=== PATIENT | female | born 1960 | race Caucasian/White ===

== ENCOUNTER 2019-11-23 19:09 | Emergency (ER) | payer MEDICAID, SELFPAY ==
[2019-11-23 19:19] VITALS: BP 150/78; PULSE 66; RESP 18; TEMP 36.8; O2SAT 96; BMI 32.3
--- NOTE | 2019-11-23 19:29 | XR_ITS ---
WS: [id number] TIBIA-FIBULA LEFT TECHNIQUE: 2 views of the left tibia-fibula CLINICAL INFORMATION: fall with injury to left lower ext COMPARISON: None. FINDINGS: No evidence of acute fracture dislocation. Normal tibiotalar joint. Normal visualized tibia and fibul a. Normal soft tissues. XR/XR tibia fibula LT 2V [id number] IMPRESSION: Normal tibia and fibula
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
[2019-11-23 21:32] VITALS: BP 134/71; PULSE 88; RESP 16; TEMP 36.8; O2SAT 99
== END 2019-11-23 21:34 | disposition home or self-care (01) ==
PROVIDERS: Emergency Provider Emergency Medicine; Family Provider Family Medicine; PCP Family Medicine
DX: S80.12XA Contusion of left lower leg, initial encounter (principal); W01.0XXA Fall on same level from slipping, tripping and stumbling without subsequent striking against object, initial encounter; Z87.891 Personal history of nicotine dependence
CPT/HCPCS: 73590; 99281; 99282

== ENCOUNTER → 2020-03-22 09:31 | Outpatient (BNVA) | payer MEDICAID, SELFPAY | PROVIDERS: Family Provider Family Medicine; PCP Family Medicine; Referring Provider Family Medicine; Visit Provider Anesthesiology Pain Medicine | DX: M54.16 Radiculopathy, lumbar region (principal); M54.9 Dorsalgia, unspecified; M62.830 Muscle spasm of back; Z79.891 Long term (current) use of opiate analgesic | CPT/HCPCS: 99204; 99205 ==

== ENCOUNTER → 2020-04-05 13:01 | Outpatient (BNVA) | payer MEDICAID, SELFPAY | PROVIDERS: Family Provider Family Medicine; PCP Family Medicine; Visit Provider Anesthesiology Pain Medicine | DX: M47.816 Spondylosis without myelopathy or radiculopathy, lumbar region (principal); M54.9 Dorsalgia, unspecified; Z79.891 Long term (current) use of opiate analgesic | CPT/HCPCS: 64493; 64494; 64495; J2001; J3490 ==

== ENCOUNTER → 2020-04-19 10:04 | Outpatient (BNVA) | payer MEDICAID, SELFPAY | PROVIDERS: Family Provider Family Medicine; PCP Family Medicine; Visit Provider Anesthesiology Pain Medicine | DX: M47.816 Spondylosis without myelopathy or radiculopathy, lumbar region (principal); M54.16 Radiculopathy, lumbar region; M54.9 Dorsalgia, unspecified; M25.559 Pain in unspecified hip; M62.830 Muscle spasm of back; M54.2 Cervicalgia | CPT/HCPCS: 99214 ==

== ENCOUNTER 2020-05-09 16:03 | Outpatient (CLI) | payer MEDICAID, SELFPAY ==
--- NOTE | 2020-05-09 16:11 | MR_ITS ---
WS: [id number] MRI LUMBAR SPINE NONCONTRAST TECHNIQUE: Sagittal T1, T2 and STIR imaging. Axial T1 and T2 imaging. CLINICAL INFORMATION: RADICULOPATHY LUMBAR REGION COMPARISON: MRI FINDINGS: Mild lumbar curve. No acute compression. Schmorl's nodes in the lower thoracic spine. L1-L2: Mild disc bulging with slight effacement of ventral thecal sac. Slight narrowing of the subart icular recess bilaterally. Mild facet arthropathy. Mild right and no significant left foraminal narro wing. L2-L3: Tiny left foraminal protrusion L2-3 with encroachment on the traversing left L3 nerve root. Na rrowing of the left subarticular recess. Right foramen is patent. Mild facet arthropathy. L3-L4: Central disc protrusion with moderate central canal stenosis. Impingement subarticular recess bilaterally. Mild facet arthropathy. Foramen are patent. L4-L5: Annular bulging with impingement on the traversing right L5 nerve root. Mild central canal willwo nosis. Mild right and no significant left foraminal narrowing. Mild facet arthropathy. L5-S1: Mild disc bulging with osteophytic ridging. Mild right greater than left bony foraminal narrow ing. Mild facet arthropathy. Visualized pelvic bony structures: Normal. Paravertebral soft tissues: Normal. Left renal cyst 7.6 cm Small central protrusions in the mid thoracic spine seen on the electric power superintendent imaging at T6-T7 and T7-T8 and T8-9. MR/MR lumbar spine wo con* [id number] IMPRESSION: 1. Mild lumbar curve. No acute compression. 2. Shallow central protrusions L3-4 with moderate to severe central canal sten osis and impingement on the subarticular recess bilaterally. This is unchanged since 2019. 3. Disc bulging L4-5 with impingement right subarticular recess and traversing right L5 nerve root. Moderate right foraminal narrowing. Mild central canal st enosis. 4. Tiny left foraminal protrusion L2-3 with encroachment on the traversing lef t L3 nerve root 5. Overall no significant changes since 2019.
--- NOTE | 2020-05-09 16:22 | XRR_ITS ---
PROCEDURE INFORMATION: Exam: XR Bilateral Hips with Pelvis when Performed Exam date and time: 05/09/2020 4:54 PM Age: 60 years old Clinical indication: Bilateral; Patient HX: C/O lt hip pain worst-chronic. No injury TECHNIQUE: Imaging protocol: XR bilateral hips with pelvis when performed. Views: 2 views. COMPARISON: CT abdomen pelvis w con* [id number] 03/07/2019 11:27 AM FINDINGS: Bones/joints: Bilateral degenerative change. Anatomic alignment. Soft tissues: Calcification about the right psoas muscle attachment site. XR/XR hip BI 3-4V wo/w pel [id number] IMPRESSION: Bilateral degenerative change.
== END 2020-05-09 16:04 | disposition home or self-care (01) ==
LOC: RADSHAW 16:10
PROVIDERS: Family Provider Family Medicine; PCP Family Medicine; Visit Provider Anesthesiology Pain Medicine
DX: M54.16 Radiculopathy, lumbar region (principal); M25.551 Pain in right hip; M25.552 Pain in left hip; M51.26 Other intervertebral disc displacement, lumbar region
CPT/HCPCS: 72148; 73522

== ENCOUNTER → 2020-06-14 11:07 | Outpatient (BNVA) | payer MEDICAID, SELFPAY | PROVIDERS: Family Provider Family Medicine; PCP Family Medicine; Visit Provider Anesthesiology Pain Medicine | DX: M54.42 Lumbago with sciatica, left side (principal); M47.816 Spondylosis without myelopathy or radiculopathy, lumbar region; M54.16 Radiculopathy, lumbar region; M54.9 Dorsalgia, unspecified; M54.2 Cervicalgia; M62.830 Muscle spasm of back; Z79.891 Long term (current) use of opiate analgesic | CPT/HCPCS: 99214; J3301; J3490 ==

== ENCOUNTER 2020-07-04 15:33 | Outpatient (RCR) | payer SELFPAY | END 2020-07-19 23:59 | disposition home or self-care (01) | LOC: SPT 15:33 | PROVIDERS: PCP Family Medicine; Referring Provider Anesthesiology Pain Medicine; Visit Provider Anesthesiology Pain Medicine | DX: M54.16 Radiculopathy, lumbar region (principal); M62.830 Muscle spasm of back | CPT/HCPCS: 97110; 97161 ==

== ENCOUNTER 2020-07-20 06:00 | Outpatient (RCR) | payer MEDICAID, SELFPAY | END 2020-08-19 23:59 | disposition home or self-care (01) | LOC: SPT 06:00 | PROVIDERS: PCP Family Medicine; Referring Provider Anesthesiology Pain Medicine; Visit Provider Anesthesiology Pain Medicine | DX: M62.830 Muscle spasm of back (principal); G89.29 Other chronic pain; M47.816 Spondylosis without myelopathy or radiculopathy, lumbar region; M54.16 Radiculopathy, lumbar region; M54.2 Cervicalgia; M54.9 Dorsalgia, unspecified; M25.552 Pain in left hip; Z79.891 Long term (current) use of opiate analgesic | CPT/HCPCS: 99213; 99214 ==

== ENCOUNTER → 2020-08-25 10:25 | Outpatient (BNVA) | payer MEDICAID, SELFPAY | PROVIDERS: PCP Family Medicine; Visit Provider Anesthesiology Pain Medicine | DX: G89.29 Other chronic pain (principal); M47.816 Spondylosis without myelopathy or radiculopathy, lumbar region; M54.16 Radiculopathy, lumbar region; M54.9 Dorsalgia, unspecified; M54.2 Cervicalgia; M25.552 Pain in left hip; M62.830 Muscle spasm of back; Z79.891 Long term (current) use of opiate analgesic | CPT/HCPCS: 99213; 99214 ==

== ENCOUNTER 2023-10-07 10:53 | Emergency (ER) | payer MEDICAID, SELFPAY ==
[2023-10-07 10:57] VITALS: BP 158/95; PULSE 82; RESP 16; O2SAT 95; BMI 25.8
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
[2023-10-07 11:14] LABS: Basophils # 0.1 10^3/uL (0.0-0.1); Basophils % 0.7 %; Eosinophils # 0.1 10^3/uL (0.0-0.8); Eosinophils % 1.6 %; Hematocrit 42.2 % (36-47); Lymphocytes # 2.3 10^3/uL (0.8-4.8); Mean Corpuscular HGB Conc 33.6 g/dL (30-55); Mean Corpuscular Hemoglobin 32.6 pg (27-33); Mean Platelet Volume 8.6 fL (7.4-10.4); Monocytes # 0.6 10^3/uL (0.2-0.9); Neutrophils # 5.04 10^3/uL (1.8-7.7); Neutrophils % 62.3 %; Nucleated Red Blood Cells % 0 %; Platelet Count 274 10^3/cmm (157-399); Red Blood Count 4.35 10^6/uL (3.85-5.65); Red Cell Distribution Width 12.4 % (12.1-15.1)
[2023-10-07 11:28] VITALS: BP 158/95; PULSE 78; RESP 24; O2SAT 98
--- NOTE | 2023-10-07 11:30 | PC.NURSE ---
PT SENSATION OF EXTREMITIES ASSESSED. PT VERBALIZED ALL EXTREMITY SENSATIONS EQUALLY BILATERAL
[2023-10-07 11:31] LABS: Blood Urea Nitrogen 9 mg/dL (8-23); Calcium 9.9 mg/dL (8.5-10.5); Carbon Dioxide 29 mmol/L (22-29); Chloride 101 mmol/L (98-107); Glomerular Filtration Rate 72.9 mL/min (90-130); Glucose 106 mg/dL (65-115); Osmolality Calculated 287 mOsm/kg (285-295); Sodium 139 mmol/L (136-145)
[2023-10-07] MEDS: ondansetron 2 mg/ML SDV 2 mL 4 MG IVP (12:00)
[2023-10-07] MEDS: morphine 4 mg/mL SDV 1 mL IVP (12:02)
[2023-10-07 12:27] VITALS: BP 156/87; PULSE 91; RESP 17; O2SAT 99
[2023-10-07 12:52] VITALS: BP 156/87; PULSE 78; RESP 15; O2SAT 96
[2023-10-07 13:18] VITALS: BP 156/87; O2SAT 97
== END 2023-10-07 13:34 | disposition home or self-care (01) ==
PROVIDERS: Emergency Provider Emergency Medicine; PCP Family Medicine
DX: S30.0XXA Contusion of lower back and pelvis, initial encounter (principal); Z87.891 Personal history of nicotine dependence; V09.9XXA Pedestrian injured in unspecified transport accident, initial encounter
CPT/HCPCS: 70450; 71260; 72125; 73562; 74177; 80048; 85025; 96374; 96375; 99285; J2270; J2405